=== PATIENT | male | born 1980 | race Caucasian/White ===

== ENCOUNTER 2016-06-15 22:16 | Emergency (ER) | payer MEDICARE, MEDICAID ==
[~2016-06-15] VITALS: Ht 180.3 cm; Wt 78.0 kg
[2016-06-15 22:34] VITALS: BP 145/76
[2016-06-15 23:11] LABS: White Blood Cell 9.7 10^3/uL (4.4-10.8)
[2016-06-15 23:12] LABS: Basophils % (auto) 1.7 % (0.0-2.0); Eosinophils % (auto) 0.9 % (0.0-7.0); Lymphocytes # (auto) 2.9 uL; Monocytes # (auto) 0.8 uL; Neutrophils # (auto) 5.8 uL; Neutrophils % (auto) 59.4 % (37.0-80.0)
[2016-06-15 23:13] LABS: Basophils # (auto) 0.2 uL; Eosinophils # (auto) 0.1 uL; Hematocrit 45.3 % (41.0-53.0); Hemoglobin 15.3 g/dL (13.5-17.5); Mean Corpuscular Hgb Conc. 33.8 g/dL (32.0-36.0); Mean Corpuscular Volume 94.5 fL (80.0-100.0); Mean Platelet Volume 8.2 fL (7.4-10.4); Platelet Count (auto) 362 10^3/uL (140-450); Red Cell Distribution Width 13.4 % (11.6-16.0)
[2016-06-15 23:23] LABS: Salicylate 3.7 mg/dL (2.8-20.0)
[2016-06-15 23:29] LABS: Acetaminophen < 2.0 ug/mL (10-30)
[2016-06-15 23:42] LABS: Albumin 4.2 g/dL (3.4-5.0); Anion Gap 12 (5-15); Aspartate Aminotransferase 34 U/L (15-37); Blood Urea Nitrogen 16 mg/dL (7-18); Carbon Dioxide 24 mmol/L (21-32); Chloride 106 mmol/L (98-107); GFR African American 124 mL/min; GFR Non-African American 103 mL/min; Glucose 82 mg/dL (74-106); Potassium 3.4 mmol/L (3.5-5.1); Sodium 142 mmol/L (136-145)
[2016-06-15 23:45] LABS: Alkaline Phosphatase 64 U/L (45-117); Bilirubin, Total 1.1 mg/dL (0.2-1.0); Total Protein 7.5 g/dL (6.4-8.2)
== END 2016-06-16 06:15 | disposition left against medical advice (07) ==
LOC: ER 22:32
DX: F99 Mental disorder, not otherwise specified (principal); Z53.21 Procedure and treatment not carried out due to patient leaving prior to being seen by health care provider
CPT/HCPCS: 36415; 80053; 80320; 80329; 85025

== ENCOUNTER 2016-06-16 10:47 | Emergency (ER) | payer MEDICARE, MEDICAID ==
[2016-06-16 10:59] VITALS: BP 120/90
== END 2016-06-16 12:31 | disposition left against medical advice (07) ==
LOC: ER 10:47
DX: R06.02 Shortness of breath (principal); R05 Cough; Z53.21 Procedure and treatment not carried out due to patient leaving prior to being seen by health care provider
CPT/HCPCS: 71020

== ENCOUNTER 2021-02-26 15:41 | Emergency (ER) | payer MEDICARE, MEDICAID ==
[~2021-02-26] VITALS: Ht 177.8 cm; Wt 90.7 kg
[2021-02-26 17:02] VITALS: BP 156/97
== END 2021-02-26 18:13 | disposition home or self-care (01) ==
LOC: EDBD 15:41 → ER 15:41
DX: J20.9 Acute bronchitis, unspecified (principal); K02.9 Dental caries, unspecified; F17.210 Nicotine dependence, cigarettes, uncomplicated
CPT/HCPCS: 71045